=== PATIENT | male | born 1980 | race Caucasian/White ===

== ENCOUNTER 2020-09-22 17:36 | Emergency (ER) | payer MEDICAID ==
[~2020-09-22] VITALS: Ht 172.7 cm; Wt 100.2 kg
[2020-09-22 17:54] VITALS: Ht 172.7 cm; Wt 100.2 kg
[2020-09-22 20:34] VITALS: BP 146/90
== END 2020-09-22 20:34 | disposition home or self-care (01) ==
LOC: ED 17:36
DX: G44.209 Tension-type headache, unspecified, not intractable (principal); M54.2 Cervicalgia; M54.9 Dorsalgia, unspecified